=== PATIENT | male | born 1970 | race Caucasian/White ===

== ENCOUNTER 2016-11-17 04:41 | Emergency (ER) | payer OTHER ==
[2016-11-17 05:18] LABS: CALCIUM 8.6 mg/dL (8.5-10.1); CARBON DIOXIDE 31.9 mmol/L (21-32); CHLORIDE SERUM 104 mmol/L (98-107); CREATININE SERUM 0.9 mg/dL (0.7-1.3); GFR1 > 60 mL/min; GLUCOSE SERUM 107 mg/dL (74-106); POTASSIUM SERUM 3.7 mmol/L (3.5-5.1); SODIUM SERUM 139 mmol/L (136-145)
[2016-11-17 05:22] LABS: ALBUMIN 3.4 g/dL (3.4-5.0); ALKALINE PHOSPHATASE 72 U/L (46-116); ALT/SGPT 27 U/L (16-63); AMYLASE 62 U/L (25-115); AST/SGOT 22 U/L (15-37); BILIRUBIN TOTAL 0.4 mg/dL (0.20-1.00); LIPASE 162 IU/L (73-393)
[2016-11-17 05:28] LABS: BASOPHIL % 0.3 % (0-2); PLATELET COUNT 224 x10^3mcL (130-400); RED CELL DISTRIBUTION WIDTH 13.5 % (11.5-14.5)
[2016-11-17 05:42] VITALS: BP 140/96
== END 2016-11-17 05:42 | disposition home or self-care (01) ==
LOC: ED 04:41
PROVIDERS: Emergency Medicine
DX: R19.7 Diarrhea, unspecified (principal); E11.9 Type 2 diabetes mellitus without complications; G89.29 Other chronic pain
CPT/HCPCS: 87804

== ENCOUNTER 2017-01-06 01:30 | Emergency (ER) | payer OTHER ==
[2017-01-06 03:14] VITALS: BP 131/84
== END 2017-01-06 03:14 | disposition home or self-care (01) ==
LOC: ED 01:30
DX: M54.5 Low back pain (principal); R19.7 Diarrhea, unspecified; Z79.899 Other long term (current) drug therapy; G89.29 Other chronic pain; E11.9 Type 2 diabetes mellitus without complications; Z21 Asymptomatic human immunodeficiency virus [HIV] infection status

== ENCOUNTER 2017-01-24 18:03 | Emergency (ER) | payer OTHER | END 2017-01-24 19:13 | disposition other institution (70) | LOC: ED 18:03 | DX: Z02.89 Encounter for other administrative examinations (principal) ==

== ENCOUNTER 2017-01-24 18:03 | Emergency (ER) | payer OTHER ==
[2017-01-24 18:08] VITALS: BP 135/89
== END 2017-01-24 19:22 | disposition other institution (70) ==
LOC: ED 18:03
DX: Z02.89 Encounter for other administrative examinations (principal)

== ENCOUNTER 2017-03-15 05:32 | Emergency (ER) | payer OTHER ==
[2017-03-15 06:38] VITALS: BP 115/77
== END 2017-03-15 07:32 | disposition home or self-care (01) ==
LOC: ED 05:32
DX: S02.40FA Zygomatic fracture, left side, initial encounter for closed fracture (principal); E11.9 Type 2 diabetes mellitus without complications; G89.29 Other chronic pain; M54.9 Dorsalgia, unspecified; F11.90 Opioid use, unspecified, uncomplicated; F17.200 Nicotine dependence, unspecified, uncomplicated; W11.XXXA Fall on and from ladder, initial encounter; Y93.89 Activity, other specified; Y99.8 Other external cause status; Y92.89 Other specified places as the place of occurrence of the external cause
CPT/HCPCS: 82962

== ENCOUNTER 2017-08-12 03:28 | Emergency (ER) | payer OTHER ==
[~2017-08-12] VITALS: Ht 175.3 cm; Wt 56.7 kg
[2017-08-12 03:42] VITALS: Ht 175.3 cm; Wt 56.7 kg
[2017-08-12 05:19] LABS: CALCIUM 8.3 mg/dL (8.5-10.1); CARBON DIOXIDE 31.9 mmol/L (21-32); CHLORIDE SERUM 103 mmol/L (98-107); CREATININE SERUM 0.7 mg/dL (0.7-1.3); GFR1 > 60 mL/min; GLUCOSE SERUM 99 mg/dL (74-106); SODIUM SERUM 140 mmol/L (136-145)
[2017-08-12 05:24] LABS: ALKALINE PHOSPHATASE 84 U/L (46-116); ALT/SGPT 36 U/L (16-63); AST/SGOT 35 U/L (15-37); BILIRUBIN TOTAL 0.2 mg/dL (0.20-1.00)
[2017-08-12 05:25] LABS: ALBUMIN 3.3 g/dL (3.4-5.0); TOTAL PROTEIN, SERUM 8.4 g/dL (6.4-8.2)
[2017-08-12 05:26] LABS: BASOPHIL % 0.9 % (0-2); PLATELET COUNT 232 x10^3mcL (130-400); RED CELL DISTRIBUTION WIDTH 12.9 % (11.5-14.5)
[2017-08-12 06:56] VITALS: BP 137/96
== END 2017-08-12 06:56 | disposition home or self-care (01) ==
LOC: ED 03:28 → DU 05:58
PROVIDERS: Emergency Medicine
DX: M79.671 Pain in right foot (principal); M79.89 Other specified soft tissue disorders; E11.9 Type 2 diabetes mellitus without complications; G89.29 Other chronic pain
CPT/HCPCS: 36415; 83880; 84439; J1170; J2405; J3370; J7050; Q0092

== ENCOUNTER 2017-09-10 05:47 | Emergency (ER) | payer OTHER ==
[~2017-09-10] VITALS: Ht 175.3 cm; Wt 59.0 kg
[2017-09-10 05:52] VITALS: Ht 175.3 cm; Wt 59.0 kg
[2017-09-10 06:49] VITALS: BP 138/80
== END 2017-09-10 06:49 | disposition home or self-care (01) ==
LOC: ED 05:47
DX: L03.011 Cellulitis of right finger (principal); E11.9 Type 2 diabetes mellitus without complications; G89.29 Other chronic pain; M54.9 Dorsalgia, unspecified; Z79.4 Long term (current) use of insulin
CPT/HCPCS: J1885

== ENCOUNTER 2018-03-14 04:40 | Emergency (ER) | payer OTHER ==
[~2018-03-14] VITALS: Ht 175.3 cm; Wt 60.8 kg
[2018-03-14 04:47] VITALS: Ht 175.3 cm; Wt 60.8 kg
[2018-03-14 05:44] VITALS: BP 138/74
== END 2018-03-14 05:44 | disposition home or self-care (01) ==
LOC: ED 04:40
DX: F11.23 Opioid dependence with withdrawal (principal); E11.9 Type 2 diabetes mellitus without complications; G89.29 Other chronic pain; M54.9 Dorsalgia, unspecified; M46.92 Unspecified inflammatory spondylopathy, cervical region
CPT/HCPCS: Q0162

== ENCOUNTER 2018-03-26 06:01 | Emergency (ER) | payer OTHER ==
[~2018-03-26] VITALS: Ht 175.3 cm; Wt 59.6 kg
[2018-03-26 06:08] VITALS: Ht 175.3 cm; Wt 59.6 kg
[2018-03-26 06:43] VITALS: BP 118/77
== END 2018-03-26 06:30 | disposition home or self-care (01) ==
LOC: ED 06:01
DX: G89.4 Chronic pain syndrome (principal); F11.20 Opioid dependence, uncomplicated; E11.9 Type 2 diabetes mellitus without complications; F17.210 Nicotine dependence, cigarettes, uncomplicated; K02.9 Dental caries, unspecified; Z76.0 Encounter for issue of repeat prescription; Z71.6 Tobacco abuse counseling
CPT/HCPCS: 99406

== ENCOUNTER 2018-07-04 19:35 | Emergency (ER) | payer OTHER ==
[~2018-07-04] VITALS: Ht 175.3 cm; Wt 61.7 kg
[2018-07-04 19:39] VITALS: Ht 175.3 cm; Wt 61.7 kg
[2018-07-04 20:40] VITALS: BP 109/71
== END 2018-07-04 20:40 | disposition home or self-care (01) ==
LOC: ED 19:35
DX: S61.213A Laceration without foreign body of left middle finger without damage to nail, initial encounter (principal); G89.29 Other chronic pain; E11.9 Type 2 diabetes mellitus without complications; F17.210 Nicotine dependence, cigarettes, uncomplicated; Z86.2 Personal history of diseases of the blood and blood-forming organs and certain disorders involving the immune mechanism; W26.0XXA Contact with knife, initial encounter; Y93.89 Activity, other specified; Y92.810 Car as the place of occurrence of the external cause; Y99.8 Other external cause status

== ENCOUNTER 2018-11-17 15:45 | Emergency (ER) | payer OTHER ==
[~2018-11-17] VITALS: Ht 175.3 cm; Wt 58.3 kg
[2018-11-17 15:55] VITALS: Ht 175.3 cm; Wt 58.3 kg
[2018-11-17 16:34] LABS: CALCIUM 9.4 mg/dL (8.5-10.1); CARBON DIOXIDE 34.7 mmol/L (21-32); CHLORIDE SERUM 100 mmol/L (98-107); CREATININE SERUM 0.8 mg/dL (0.7-1.3); GFR1 > 60 mL/min; GLUCOSE SERUM 104 mg/dL (74-106); POTASSIUM SERUM 4.1 mmol/L (3.5-5.1); SODIUM SERUM 140 mmol/L (136-145)
[2018-11-17 16:35] LABS: BASOPHIL % 1.3 % (0-2); PLATELET COUNT 274 x10^3mcL (130-400); RED CELL DISTRIBUTION WIDTH 14.4 % (11.5-14.5)
[2018-11-17 16:38] LABS: ALBUMIN 3.5 g/dL (3.4-5.0); ALKALINE PHOSPHATASE 116 U/L (46-116); ALT/SGPT 37 U/L (16-63); AST/SGOT 33 U/L (15-37); BILIRUBIN TOTAL 0.4 mg/dL (0.20-1.00); LIPASE 85 IU/L (73-393)
[2018-11-17 16:41] LABS: TOTAL PROTEIN, SERUM 10.4 g/dL (6.4-8.2)
[2018-11-17 17:23] VITALS: BP 120/65
== END 2018-11-17 17:23 | disposition home or self-care (01) ==
LOC: ED 15:45
PROVIDERS: Emergency Medicine
DX: J18.9 Pneumonia, unspecified organism (principal); R07.81 Pleurodynia; E11.9 Type 2 diabetes mellitus without complications; G89.29 Other chronic pain; M54.9 Dorsalgia, unspecified
CPT/HCPCS: 36415; Q0092; Q0162

== ENCOUNTER 2019-07-01 01:35 | Emergency (ER) | payer OTHER ==
[~2019-07-01] VITALS: Ht 175.3 cm; Wt 59.4 kg
[2019-07-01 01:57] VITALS: BP 126/88
== END 2019-07-01 01:57 | disposition home or self-care (01) ==
LOC: ED 01:35
DX: Z76.0 Encounter for issue of repeat prescription (principal); F11.23 Opioid dependence with withdrawal; R10.9 Unspecified abdominal pain; E11.9 Type 2 diabetes mellitus without complications; G89.29 Other chronic pain; M54.9 Dorsalgia, unspecified; M46.92 Unspecified inflammatory spondylopathy, cervical region
CPT/HCPCS: 99406

== ENCOUNTER 2019-09-12 23:22 | Emergency (ER) | payer OTHER ==
[~2019-09-12] VITALS: Ht 175.3 cm; Wt 59.0 kg
[2019-09-12 23:35] VITALS: BP 119/82; Ht 175.3 cm; Wt 59.0 kg
== END 2019-09-13 01:54 | disposition left against medical advice (07) ==
LOC: ED 23:22
DX: Z53.21 Procedure and treatment not carried out due to patient leaving prior to being seen by health care provider (principal)

== ENCOUNTER 2019-09-26 18:05 | Emergency (ER) | payer OTHER ==
[~2019-09-26] VITALS: Ht 167.6 cm; Wt 61.7 kg
[2019-09-26 18:17] VITALS: BP 106/67; Ht 167.6 cm; Wt 61.7 kg
== END 2019-09-26 21:23 | disposition left against medical advice (07) ==
LOC: ED 18:05
DX: H92.01 Otalgia, right ear (principal); M79.10 Myalgia, unspecified site; R51 Headache